=== PATIENT | male | born 1965 | race Caucasian/White ===

== ENCOUNTER 2018-07-02 09:12 | Outpatient (CLI) | payer BC ==
--- NOTE | 2018-07-02 10:59 | RAD ---
RIGHT SHOULDER THREE VIEWS: HISTORY: Injury to right shoulder after hearing a pop. TECHNIQUE: Three views of the right shoulder obtained. FINDINGS: AP internally, externally, and scapular Y views of the right shoulder demonstrate no evidence of righ t shoulder fractures, subluxations, or bony lesions. No evidence of bony abnormalities seen. IMPRESSION: Normal three views right shoulder. POS: C
== END 2018-07-02 09:13 | disposition home or self-care (01) ==
LOC: BICRAD 09:12
PROVIDERS: ATTEND Family Medicine
DX: M25.511 Pain in right shoulder (principal)